=== PATIENT | female | born 1975 | race African-American/Black ===

== ENCOUNTER 2021-03-17 12:16 | Emergency (ER) | payer SELFPAY ==
[~2021-03-17] VITALS: Ht 160 cm; Wt 50.0 kg
[2021-03-17] MEDS ORDERED: KETOROLAC 60MG/2ML VIAL IM ONE (13:30)
[2021-03-17] MEDS ORDERED: TETANUS, DIPHTHERIA, PERTUSSIS VAC/PF 0.5ML (>7YR OLD) IM ONE (13:30)
[2021-03-17] MEDS ORDERED: METHOCARBAMOL 500MG TABLET PO ONE (13:30)
[2021-03-17] MEDS ORDERED: TRAM50TA3 MT (13:37)
[2021-03-17] MEDS ORDERED: METH500T6 MT (13:37)
[2021-03-17] MEDS ORDERED: NAPR-679 MT (13:37)
[2021-03-17 13:39] VITALS: BP 129/96
== END 2021-03-17 14:07 | disposition home or self-care (01) ==
LOC: ER 12:16
DX: S20.20XA Contusion of thorax, unspecified, initial encounter (principal); S40.812A Abrasion of left upper arm, initial encounter; V43.52XA Car driver injured in collision with other type car in traffic accident, initial encounter; W22.11XA Striking against or struck by driver side automobile airbag, initial encounter; Y93.89 Activity, other specified; Y92.488 Other paved roadways as the place of occurrence of the external cause
CPT/HCPCS: 90471; 90715; 93005; 96372; 99284; J1885